=== PATIENT | male | born 1955 ===

== ENCOUNTER → 2017-12-31 | Outpatient (REF) | payer SELFPAY ==
[2017-12-31 17:15] LABS: PLATELET COUNT, AUTOMATED 290 K/uL (150-450)
== END ==
PROVIDERS: ATTEND Physician Assistant Medical
DX: K92.1 Melena (principal)
CPT/HCPCS: 82040; 82247; 82310; 82374; 82435; 82565; 82947; 84075; 84132; 84155; 84295; 84450; 84460; 84520; 85025